=== PATIENT | female | born 1950 | race Caucasian/White ===

== ENCOUNTER 2018-07-16 13:46 | Emergency (ER) | payer BC ==
--- NOTE | 2018-07-16 14:50 | UC ---
Throat Pain/Nasal Angel HPI - HPI Summary HPI Summary: 68 yo female presents with sore throat for 2 days. Today woke up with headache, chills, and earache. She tells me that she has had step before and this feels the exact same. She has not taken anything OTC for her symptoms. Has not taken her temperature. She is able to eat and drink, but has pain. Denies fever, sinus symptoms, cough, SOB, chest pain, n/v. - History of Current Complaint Stated Complaint: SORE THROAT Time Seen by Provider: 07/16/18 14:50 Hx Obtained From: Patient Onset/Duration: Sudden Onset Severity: Mild Pain Intensity: 4 Pain Scale Used: 0-10 Numeric - Allergies/Home Medications Allergies/Adverse Reactions: Allergies Allergy/AdvReac Type Severity Reaction Status Date / Time MS Tramadol [Tramadol] Allergy Severe UNCONTROL Verified 12/10/15 11:46 DIZZINESS, VISION LOSS, HOT PERFUMES/SCENTS/DRYER SHEET Allergy Severe TRIGGER Uncoded 12/10/15 11:46 ASTHMA ENVIRONMENTAL Allergy Intermediate ASTHMA Uncoded 12/10/15 11:46 Home Medications: Home Medications Cholecalciferol TAB* [Vitamin D TAB*] 1,000 unit PO DAILY 07/16/18 [History Confirmed 07/16/18] Vitamin B Complex CAP* [B Complex CAP*] 07/16/18 [History] PMH/Surg Hx/FS Hx/Imm Hx Respiratory History: Asthma - Surgical History Surgical History: Yes Surgery Procedure, Year, and Place: LEFT BUNIONECTOMY- 2004- [facility]. RIGHT WRIST REPAIR OF CRUSHED BONES- - [facility] – [place]. EARLY 1991 - COSMETIC BREAST IMPLANTS ( PT DOES NOT REMEMBER IF THEY ARE SILICONE OR SALINE- MANY YRS AGO W/ DR PEÑA AND [facility] DOES NOT HAVE THOSE RECORDS) - Family History Known Family History: Positive: Respiratory Disease - Social History Lives: With Family Alcohol Use: None Substance Use Type: None Smoking Status (MU): Never Smoked Tobacco Have You Smoked in the Last Year: No Review of Systems All Other Systems Reviewed And Are Negative: Yes Constitutional: Positive: Chills Skin: Positive: Negative Eyes: Positive: Negative ENT: Positive: Sore Throat Respiratory: Positive: Negative Cardiovascular: Positive: Negative Gastrointestinal: Positive: Negative Neurovascular: Positive: Negative Neurological: Positive: Negative Psychological: Positive: Negative Physical Exam - Summary Physical Exam Summary: GENERAL: NAD. WDWN. No pain distress. SKIN: No rashes, sores, lesions, or open wounds. HEENT: Head: AT/NC Eyes: Conjunctiva clear without inflammation or discharge. Ears: Hearing grossly normal. TMs intact, no bulging, erythema, or edema. Nose: Nasal mucosa pink and moist. NTTP maxillary and frontal sinus. Throat: Posterior oropharynx mild erythema. No tonsillar enlargement. No exudates. Uvula midline. No hoarse voice or muffled voice. NECK: Supple. Nontender. No lymphadenopathy. CHEST: CTAB. No r/r/w. No accessory muscle use. Breathing comfortably and in no distress. CV: RRR. Without m/r/g. Pulses intact. Cap refill <2seconds NEURO: Alert. PSYCH: Age appropriate behavior. Triage Information Reviewed: Yes Vital Signs: Laboratory Tests 07/16/18 07/16/18 15:15 15:19 Influenza A (Rapid) Negative Influenza B (Rapid) Negative Group A Strep Rapid Negative Vital Signs: Temp Pulse Resp BP Pulse Ox 100.2 F 90 16 135/80 98 07/16/18 14:49 07/16/18 14:49 07/16/18 14:49 07/16/18 14:49 07/16/18 14:49 Vital Signs Reviewed: Yes Throat Pain/Nasal Course/Dx - Course Course Of Treatment: Discussed POC results with pt that this could be a viral illness. She remains adamant that she has strep and is requesting treatment today. - Differential Dx/Diagnosis Provider Diagnosis: Pharyngitis Discharge - Sign-Out/Discharge Documenting (check all that apply): Patient Departure All imaging exams completed and their final reports reviewed: No Studies - Discharge Plan Condition: Stable Disposition: HOME Prescriptions: Amoxicillin PO (*) [Amoxicillin 500 MG CAP*] 500 mg PO Q12H #14 cap Patient Education Materials: Pharyngitis (ED) Referrals: No Primary Care Phys,NOPCP [Primary Care Provider] - Additional Instructions: If you develop a fever, shortness of breath, chest pain, new or worsening symptoms - please call your PCP or go to the ED. - Billing Disposition and Condition Condition: STABLE Disposition: Home
[2018-07-16 14:55] VITALS: BP 135/80
== END 2018-07-16 15:50 | disposition home or self-care (01) ==
LOC: UCEAST 13:46
DX: J02.9 Acute pharyngitis, unspecified (principal); J45.909 Unspecified asthma, uncomplicated; Z88.6 Allergy status to analgesic agent; Z91.048 Other nonmedicinal substance allergy status; Z91.09 Other allergy status, other than to drugs and biological substances
CPT/HCPCS: 87651; 99212; G0463